=== PATIENT | male | born 1975 | race African-American/Black ===

== ENCOUNTER 2024-07-20 10:52 | Inpatient (IN) | payer OTHER ==
[2024-07-20] MEDS ORDERED: NALOXONE HCL 0.4 MG/ML VIAL IVPUSH PRN (11:10)
[2024-07-20] MEDS ORDERED: BENZOCAINE/MENTHOL (CHLORASEPTIC ) LOZENGE MM PRN (11:10)
[2024-07-20] MEDS ORDERED: LOPERAMIDE HCL 2 MG CAPSULE PO PRN (11:10)
[2024-07-20] MEDS ORDERED: MAGNESIUM HYDROX 2400MG/30ML ORAL SUSPENSION 30 ML CUP PO PRN (11:10)
[2024-07-20] MEDS ORDERED: guaiFENesin 600 MG TABLET.ER (FP) PO PRN (11:10)
[2024-07-20] MEDS ORDERED: IBUPROFEN 400 MG TABLET (FP) PO PRN (11:10)
[2024-07-20] MEDS ORDERED: POLYETHYLENE GLYCOL (HEALTHYLAX) 3350 17 GM PACKET PO PRN (11:10)
[2024-07-20] MEDS ORDERED: NALOXONE (NARCAN) HCL 4 MG/0.1 ML SPRAY NS PRN (11:10)
[2024-07-20] MEDS ORDERED: BENZONATATE 200 MG CAPSULE PO PRN (11:10)
[2024-07-20] MEDS ORDERED: ALBUTEROL SO4 HFA INHALER IH ONE (11:12)
[2024-07-20] MEDS: ALBUTEROL SO4 HFA INHALER IH PRN (11:16)
[2024-07-20] MEDS: MELATONIN 5 MG TABLETS PO SCH (21:48)
[2024-07-20] MEDS: QUEtiapine FUMARATE 200 MG TABLET PO SCH (21:48)
[2024-07-20] MEDS: BENZTROPINE MESYLATE 0.5 MG TABLET (FP) PO SCH (21:48)
[2024-07-20] MEDS: DIVALPROEX SODIUM 250 MG TABLET E.C. PO SCH (21:48)
[2024-07-20] MEDS: THIAMINE 100 MG TABLET PO SCH (21:49)
[2024-07-21] MEDS: PRENATAL VITAMINS W/ FOLIC ACID TABLET (FP) PO SCH (09:42)
[2024-07-21] MEDS: MAG HYDROX/AL HYDROX/SIMETH 30 ML UNIT-DOSE CUP PO PRN (09:42)
[2024-07-21] MEDS: ONDANSETRON *ODT* 4 MG TABLET SL PRN (12:30)
[2024-07-23] MEDS: IBUPROFEN 600 MG TABLET (FP) PO PRN (02:53)
[2024-07-23] MEDS: ACETAMINOPHEN 325 MG TABLET (FP) PO PRN (05:29)
[2024-07-23] MEDS: PANTOPRAZOLE 20 MG TABLET PO SCH (14:38)
[2024-07-23] MEDS: QUEtiapine FUMARATE 100 MG TABLET (FP) PO SCH (21:13)
[2024-07-23] MEDS: BENZTROPINE MESYLATE 1 MG TABLET PO SCH (21:13)
[2024-07-23] MEDS: BACLOFEN 10 MG TABLET (FP) PO SCH (21:14)
[2024-07-23] MEDS ORDERED: SIMETHICONE 80 MG TAB.CHEW (FP) PO PRN (22:03)
[2024-07-24] MEDS: NALTREXONE HCL 50 MG TABLET PO SCH (10:42)
[2024-07-24 11:45] LABS: INR 0.96 (0.83-1.09); PROTHROMBIN TIME (PATIENT) 10.5 SEC (9.7-13.0)
[2024-07-24 12:04] LABS: AMYLASE 67 U/L (25-115)
[2024-07-24] MEDS: NALTREXONE HCL 50 MG TABLET PO ONE (14:30)
[2024-07-24] MEDS ORDERED: NALTREXONE HCL 50 MG TABLET PO ONE (18:00)
[2024-07-25] MEDS: NALTREXONE HCL 50 MG TABLET PO SCH (09:39)
[2024-07-25] MEDS: LACTULOSE 20 GM/30 ML UDC (FOR ORAL USE ONLY) PO SCH (14:01)
[2024-08-08] MEDS: NALTREXONE HCL 50 MG TABLET PO SCH (13:28)
[2024-08-13 06:42] VITALS: RESP 18
[2024-08-15] MEDS: AMOX TR/POT CLAV 875MG/125MG TABLETS (FP) PO SCH (07:54)
[2024-08-15] MEDS: NALTREXONE MICROSPHERES (VIVITROL) 380 MG DISP.SYRIN IM ONE (10:43)
[2024-08-16 06:43] VITALS: BP 106/79; PULSE 92; TEMP 96.8
== END 2024-08-16 11:00 | disposition home or self-care (01) | DRG 772 ==
LOC: YASAS 10:52 → Y5N 10:56
PROVIDERS: ADMIT Psychiatry & Neurology Pain Medicine; ATTEND Nurse Practitioner Adult Health
PROC: HZ42ZZZ Group Counseling for Substance Abuse Treatment, Cognitive-Behavioral (ICD-10-PCS; principal; 2024-07-20)
DX: F10.20 Alcohol dependence, uncomplicated (principal); F14.20 Cocaine dependence, uncomplicated; F17.210 Nicotine dependence, cigarettes, uncomplicated; F25.9 Schizoaffective disorder, unspecified; F32.9 Major depressive disorder, single episode, unspecified; E72.20 Disorder of urea cycle metabolism, unspecified; J18.9 Pneumonia, unspecified organism; J45.909 Unspecified asthma, uncomplicated; K21.9 Gastro-esophageal reflux disease without esophagitis; M25.512 Pain in left shoulder; R26.89 Other abnormalities of gait and mobility
CPT/HCPCS: 36415; 71045-TC-FY; 73030-TC-LT-FY; 80164; 82140; 82150; 82652; 83690; 83735; 84484; 85610; 93005; 93010; J0475; Q0162